=== PATIENT | male | born 1985 | race Caucasian/White ===

== ENCOUNTER 2024-11-10 06:59 | Emergency (ER) | payer MEDICAID ==
[~2024-11-10] VITALS: Ht 180.3 cm; Wt 84.0 kg
[2024-11-10 07:16] VITALS: O2SAT 99
[2024-11-10] MEDS: HYDROCODONE/ACETAMINOPHEN 5/325MG TABLET PO SCH (08:53)
[2024-11-10 09:17] LABS: BASOPHILS % 0.2 % (0.0-2.0); EOSINOPHILS % 0.2 % (0.0-5.0); HEMATOCRIT. 46.3 % (42.0-52.0); HEMOGLOBIN. 15.5 g/dL (14.0-18.0); LYMPHOCYTES % 9.7 % (20.0-50.0); MEAN PLATELET VOLUME 8.2 fl (7.4-10.4); MONOCYTES % 6.4 % (2.0-8.0); NEUTROPHILS % 83.5 % (40.0-76.0); PLATELET 222 x1000/uL (130-400); RED BLOOD CELL COUNT 5.34 mill/uL (4.7-6.1); RED CELL DISTRIBUTION WIDTH 12.8 % (11.6-14.6)
[2024-11-10] MEDS ORDERED: IBUP-2030 MT (10:46)
[2024-11-10] MEDS: LIDOCAINE HCL/EPINEPHRINE 1%-EPI 1:100,000 20ML VIAL INFIL NR (11:16)
[2024-11-10] MEDS: MUPIROCIN 2% OINT 15GM TOP SCH (11:30)
[2024-11-10] MEDS: TETANUS, DIPHTHERIA, PERTUSSIS VAC/PF 0.5ML (>10YR OLD) IM ONE (11:34)
[2024-11-10] MEDS: TETANUS AND DIPHTHERIA TOX/PF 0.5ML SYR (ADULT) IM ONE (11:34)
[2024-11-10 11:35] VITALS: BP 138/99; PULSE 82; RESP 19; TEMP 36.9; O2SAT 99
== END 2024-11-10 12:07 | disposition home or self-care (01) ==
LOC: ER 06:59
DX: S42.301A Unspecified fracture of shaft of humerus, right arm, initial encounter for closed fracture (principal); S01.111A Laceration without foreign body of right eyelid and periocular area, initial encounter; Z04.89 Encounter for examination and observation for other specified reasons; Y04.0XXA Assault by unarmed brawl or fight, initial encounter; Y93.89 Activity, other specified; Y92.89 Other specified places as the place of occurrence of the external cause; Y99.8 Other external cause status
CPT/HCPCS: 99285; 70450; 85025; 36415; 73030; 70486; 12011; J2004; 90714; 90715